=== PATIENT | female | born 1975 | race African-American/Black ===

== ENCOUNTER 2018-06-06 12:06 | Emergency (ER) | payer OTHER ==
[~2018-06-06] VITALS: Ht 167.6 cm; Wt 81.0 kg
[~2018-06-06 12:06] MED LIST: ALPR0.5T PO
[2018-06-06 12:16] VITALS: BP 139/89
[2018-06-06] MEDS ORDERED: ACETAMINOPHEN 325MG TABLET PO ONE (12:30)
[2018-06-06 15:10] LABS: CLARITY URINE CLEAR (CLEAR); COLOR URINE YELLOW (YELLOW); KETONES URINE NEGATIVE (NEGATIVE); LEUKOCYTE ESTERASE URINE NEGATIVE (NEGATIVE); NITRITE URINE NEGATIVE (NEGATIVE); OCCULT BLOOD URINE NEGATIVE (NEGATIVE); PROTEIN URINE NEGATIVE (NEGATIVE); SPECIFIC GRAVITY URINE 1.006 (1.005-1.030); UROBILINOGEN URINE 0.2 E.U./dL (0.2-1.0)
== END 2018-06-06 15:44 | disposition left against medical advice (07) ==
LOC: ER 12:06
DX: M54.5 Low back pain (principal); R20.0 Anesthesia of skin; Z98.890 Other specified postprocedural states
CPT/HCPCS: 81003; 99283

== ENCOUNTER 2018-06-19 10:54 | Emergency (ER) | payer OTHER ==
[~2018-06-19] VITALS: Ht 175.3 cm; Wt 99.0 kg
[2018-06-19] MEDS ORDERED: HYDROCODONE/ACETAMINOPHEN 5/325MG TABLET PO STA (15:06)
[2018-06-19] MEDS ORDERED: SODIUM CHLORIDE 0.9% 1,000 ML IV ONE (15:06)
[2018-06-19 16:21] LABS: BASOPHILS % 0.5 % (0.0-2.0); EOSINOPHILS % 1.1 % (0.0-5.0); HEMATOCRIT. 44.2 % (36.0-48.0); HEMOGLOBIN. 15.6 g/dL (12.0-16.0); MEAN CORPUSCULAR HEMOGLOBIN 32.1 pg (28.0-32.0); MEAN CORPUSCULAR VOLUME 91.3 fL (81.0-99.0); MEAN PLATELET VOLUME 9.8 fl (7.4-10.4); MONOCYTES % 4.9 % (2.0-8.0); NEUTROPHILS % 70.5 % (40.0-76.0); PLATELET 193 x1000/uL (130-400); RED BLOOD CELL COUNT 4.84 mill/uL (4.2-5.4); RED CELL DISTRIBUTION WIDTH 12.6 % (11.6-14.6)
[2018-06-19 16:28] LABS: CHLORIDE 105 mEq/L (98-107); PROTHROMBIN TIME 10.3 sec (9.1-11.1)
[2018-06-19 17:17] LABS: CLARITY URINE CLEAR (CLEAR); COLOR URINE YELLOW (YELLOW); KETONES URINE 1+ (NEGATIVE); LEUKOCYTE ESTERASE URINE NEGATIVE (NEGATIVE); NITRITE URINE NEGATIVE (NEGATIVE); OCCULT BLOOD URINE NEGATIVE (NEGATIVE); PROTEIN URINE NEGATIVE (NEGATIVE); SPECIFIC GRAVITY URINE 1.014 (1.005-1.030); UROBILINOGEN URINE 0.2 E.U./dL (0.2-1.0)
[2018-06-19 17:29] LABS: CANNABINOID URINE SCREEN NEGATIVE (NEGATIVE); OPIATES URINE SCREEN NEGATIVE (NEGATIVE); PHENCYCLIDINE URINE SCREEN NEGATIVE (NEGATIVE)
[2018-06-19 17:30] LABS: *AMPHETAMINES SCREEN URINE NEGATIVE (NEGATIVE); *BARBITURATES SCREEN URINE NEGATIVE (NEGATIVE); *BENZODIAZEPINES SCREEN URINE NEGATIVE (NEGATIVE); *COCAINE SCREEN URINE NEGATIVE (NEGATIVE); METHADONE URINE SCREEN NEGATIVE (NEGATIVE)
[2018-06-19 20:41] VITALS: BP 137/80
== END 2018-06-19 20:46 | disposition home or self-care (01) ==
LOC: ER 14:10
DX: M54.5 Low back pain (principal); R03.0 Elevated blood-pressure reading, without diagnosis of hypertension; K76.89 Other specified diseases of liver; I71.4 Abdominal aortic aneurysm, without rupture; Z72.0 Tobacco use
CPT/HCPCS: 36415; 74174; 80053; 80305; 81003; 81025; 83690; 85025; 85610; 96360; 96361; 99285; J7030; Z7610

== ENCOUNTER 2019-08-02 13:08 | Emergency (ER) | payer OTHER ==
[~2019-08-02] VITALS: Ht 170.2 cm; Wt 85.0 kg
[2019-08-02] MEDS ORDERED: SODIUM CHLORIDE 0.9% 500 ML IV ONE (15:04)
[2019-08-02] MEDS ORDERED: ACETAMINOPHEN 325MG TABLET PO ONE (15:15)
[2019-08-02 15:37] LABS: BASOPHILS % 0.4 % (0.0-2.0); EOSINOPHILS % 3.1 % (0.0-5.0); HEMATOCRIT. 44.2 % (36.0-48.0); HEMOGLOBIN. 15.6 g/dL (12.0-16.0); LYMPHOCYTES % 17.6 % (20.0-50.0); MEAN CORPUSCULAR VOLUME 90.9 fL (81.0-99.0); MEAN PLATELET VOLUME 9.6 fl (7.4-10.4); MONOCYTES % 6.2 % (2.0-8.0); NEUTROPHILS % 72.7 % (40.0-76.0); PLATELET 184 x1000/uL (130-400); RED BLOOD CELL COUNT 4.86 mill/uL (4.2-5.4); RED CELL DISTRIBUTION WIDTH 12.6 % (11.6-14.6)
[2019-08-02 15:40] LABS: CHLORIDE 105 mEq/L (98-107)
[2019-08-02 15:44] LABS: HCG SCREEN NEGATIVE
[2019-08-02 15:48] LABS: PARTIAL THROMBOPLASTIN TIME 28.3 sec (23.4-31.0)
[2019-08-02 15:49] LABS: CREATINE KINASE 49 IU/L (26-192)
[2019-08-02 15:51] LABS: CREATINE KINASE MB FRACTION < 1.0 ng/mL (0.5-3.6)
[2019-08-02 16:53] LABS: CLARITY URINE CLEAR (CLEAR); COLOR URINE YELLOW (YELLOW); KETONES URINE NEGATIVE (NEGATIVE); LEUKOCYTE ESTERASE URINE TRACE (NEGATIVE); NITRITE URINE NEGATIVE (NEGATIVE); OCCULT BLOOD URINE NEGATIVE (NEGATIVE); PH URINE 6.5 (4.5-8.0); PROTEIN URINE NEGATIVE (NEGATIVE); SPECIFIC GRAVITY URINE 1.002 (1.005-1.030); UROBILINOGEN URINE 0.2 E.U./dL (0.2-1.0)
[2019-08-02] MEDS ORDERED: CEFTRIAXONE 1 G PREMIX 50 ML IV ONE (18:15)
[2019-08-02] MEDS ORDERED: KETOROLAC 15MG/ML VIAL IV ONE (18:15)
[2019-08-02 19:50] VITALS: BP 134/78
== END 2019-08-02 20:39 | disposition home or self-care (01) ==
LOC: ER 13:08 → EDBEDREQ 15:20 → ER 20:39 → CANBEDREQ 23:58
DX: N30.90 Cystitis, unspecified without hematuria (principal); M54.30 Sciatica, unspecified side; Z90.49 Acquired absence of other specified parts of digestive tract; Z98.890 Other specified postprocedural states
CPT/HCPCS: 36415; 71045; 74176; 80053; 81003; 82550; 82553; 83690; 83880; 84484; 84703; 85025; 85610; 85730; 93005; 96365; 96375; 99284; J0696; J1885; J7040